=== PATIENT | male | born 1940 | race Caucasian/White ===

== ENCOUNTER 2022-01-18 06:32 | Inpatient (IN) ==
[2022-01-18] MEDS ORDERED: IOPAMIDOL 100 ML BOTTLE IV ONE (06:33)
[2022-01-18 06:51] LABS: POC Calcium, Ionized 1.12 (1.16-1.32); POC Potassium 3.7 (3.3-5.1)
--- NOTE | 2022-01-18 06:57 | Emergency Department Note ---
HPI General Chief complaint: Abdominal Pain Stated complaint: Lower abdominal pain starting 4 days ago. Time Seen by Provider: 01/18/22 06:37 Source: patient Mode of arrival: ambulatory Limitations: no limitations History of Present Illness HPI Narrative: Narrative: Patient is a 81-year-old male with a history significant for diverticulosis who presents to the emergency department due to abdominal pain and constipation. Patient states that he has had abdominal pain over the last 4 days, but it is not improving like he would expect. He states that it is in the right and left lower parts of his belly. He states that it feels like a pressure, and that he also has tenderness. He endorses pebble-like stool yesterday evening, but states that prior to that did have some loose stool. He denies any other symp toms at this time. Related Data Home Medications Medication Instructions Recorded Confirmed Vitamin E PO 06/01/17 05/21/18 glucosamine HCl 1,500 mg tablet 1,500 mg PO ONCE 06/01/17 05/21/18 mecobalamin (vitamin B12) 5,000 mcg PO 06/01/17 05/21/18 mcg disintegrating tablet multivitamin 1 tab PO QAM 06/01/17 05/21/18 Previous Rx's Medication Instructions Recorded atorvastatin 40 mg tablet 40 mg PO QDAY #90 tabs 10/20/17 tamsulosin 0.4 mg capsule (Flomax) 0.4 mg PO QDAY #90 caps 03/11/18 Allergies Allergy/AdvReac Type Severity Reaction Status Date / Time tramadol Allergy Not Verified 05/21/18 10:27 tolerated Review of Systems ROS ROS Narrative: Narrative: Constitutional: Denies fever or weakness Eyes: Denies eye pain or vision change ENT ED: Denies throat pain or rhinorrhea Cardiovascular: Denies chest pain or edema Respiratory: Denies shortness of breath or cough Gastrointestinal: Reports abdominal pain, diarrhea and constipation; Denies nausea, vomiting, hematochezia or melena Genitourinary: Denies dysuria or frequency Musculoskeletal: Denies back pain or myalgia Integumentary: Denies rash or lesions Neurological: Denies headache, weakness, numbness, confusion, abnormal gait or dizziness Endocrine: Denies fatigue or polyuria Hematological/Lymphatic: Denies easy bleeding or easy bruising PFS Narrative Patient History Narrative: Narrative: Medical/Surgical/Family History All Active Problems (Updated 04/04/20 @ 08:24 by Agent Panda) Lung nodule (Acute) Arthralgia of multiple joints (Acute) Muscle pain (Acute) Weight loss (Acute) Lesion of lip (Chronic) Disc disorder of cervical region (Acute) Diverticulosis (Chronic) Colon polyps (Chronic) History of colonoscopy (Chronic) Prostatic hypertrophy, benign (Chronic) Hyperlipidemia (Chronic) Emphysema of lung (Chronic) Carotid stenosis (Chronic) Medical History (Updated 04/04/20 @ 08:24 by Agent Panda) Carotid stenosis 01/27/2012; 2016 Right common and internal carotid arteries are widely patent. 50% stenosis of the right external carotid artery; 50% stenosis of the left common carotid artery - unchanged. Left internal carotid artery is widely patent. 50% stenosis of the left external carotid artery Colon polyps Disc disorder of cervical region Diverticulosis Elevated blood pressure Emphysema of lung Hyperlipidemia 01/27/2012 Lesion of lip right side of upper lip Lung nodule tri-pronged, abnormal appearing lung nodule in upper lung, unchanged from pre vious chest imaging 6 months prior Prostatic hypertrophy, benign w/o Urinary Obst. Surgical History H/O foot surgery (~03/2017) left foot, heel spur removal History of colonoscopy 02/04/2010; due 2020 Family History Unknown Alzheimer's disease Father Malignant neoplasm Metastatic cancer resulted in deathl. Recorded 12/20/09 Social History Smoking Status: Former smoker Alcohol Intake Frequency: does not drink Exam Narrative Narrative: Narrative: General Limitations: no limitations General appearance: Present alert and in no apparent distress; Absent anxious, appears intoxicated or sleepy Head Head: Present atraumatic and normocephalic Eye Eye: Present EOMI; Absent scleral icterus or nystagmus ENT ENT: Present mucous membranes moist; Absent nasal congestion Neck Neck: Present full ROM; Absent tenderness Chest Chest: Present normal inspection and symmetric chest wall rise; Absent tenderness Respiratory Respiratory: Present normal lung sounds bilaterally; Absent respiratory distress or accessory muscle use Cardiovascular Cardiovascular: Present regular rate, normal rhythm and normal heart sounds Adbominal Abdominal: Present soft, tenderness, guarding, normal bowel sounds and tenderness at McBurney's Point; Absent distention, rebound, rigidity or Rovsing's sign Extremities Extremities: Present normal inspection and full ROM Back Back: Present normal inspection and full ROM Neurological Neurological: Present alert and oriented X3 Psychiatric Psychiatric: Present normal affect and normal mood Skin Skin: Present warm (WNL), dry and normal color Course Vital Signs Vital signs: Vital Signs Temperature 98.4 F 01/18/22 06:33 Pulse Rate 71 01/18/22 06:33 Respiratory Rate 18 01/18/22 06:33 Blood Pressure 151/76 01/18/22 06:33 Pulse Oximetry (%) 95 01/18/22 06:33 Oxygen Delivery Method 01/18/22 06:33 Temperature 98.4 F 01/18/22 06:33 Pulse Rate 71 01/18/22 06:33 Respiratory Rate 18 01/18/22 06:33 Blood Pressure 151/76 01/18/22 06:33 Pulse Oximetry (%) 95 01/18/22 06:33 Oxygen Delivery Method 01/18/22 06:33 MDM MDM Narrative Medical decision making narrative: Narrative: Patient is a 81-year-old male who presents to the emergency department due to abdominal pain. Differential diagnoses include diverticulitis, colitis, constipation, UTI. Labs and imaging are pending at this time. Patient has been signed out to Dr. Coello. Lab Data Result diagrams: 01/18/22 06:56 Labs: Lab Results 01/18/22 Range/Units 06:46 POC Hct 45.0 (41-55) POC Sodium 140 (133-145) POC Potassium 3.7 (3.3-5.1) POC Chloride 106 (96-108) POC Total CO2 26.0 (22-30) POC BUN 25 H (6-20) POC Creatinine 1.0 (0.6-1.2) POC Glucose 100 (70-105) POC WB Ioniz Calcium 1.12 L (1.16-1.32) Discharge Plan Patient/Caregiver Discharge Instructions Pt seen by COST CONTROLLER/PA only: No Patient Disposition: Still a Patient Condition: Fair Follow up with: Maida Villanueva, ISAIAH, [employer] [Primary Care Provider] - Prescriptions: No Action atorvastatin 40 mg tablet 40 mg PO QDAY Qty: 90 4RF tamsulosin [Flomax] 0.4 mg capsule 0.4 mg PO QDAY Qty: 90 6RF mecobalamin (vitamin B12) 5,000 mcg tablet,disintegrating PO Vitamin E PO multivitamin tablet 1 tab PO QAM glucosamine HCl 1,500 mg tablet 1,500 mg PO ONCE
[2022-01-18 07:47] LABS: Basophils # (Auto) 0.04 K/mcL (0.00-0.30); Basophils % (Auto) 0.3 % (0.0-2.0); Eosinophils # (Auto) 0.19 K/mcL (0.00-0.70); Eosinophils % (Auto) 1.7 % (0.0-7.0); Hematocrit 45.6 % (40.1-51.0); Hemoglobin 15.2 g/dL (13.7-17.5); Lymphocytes % (Auto) 15.7 % (15.5-49.0); Mean Cell Volume 89.6 fL (80.0-100.0); Mean Corpuscular HGB Conc 33.3 g/dL (31.0-36.0); Mean Platelet Volume 10.6 fL (8.8-12.5); Monocytes # (Auto) 1.06 K/mcL (0.10-0.90); Monocytes % (Auto) 9.2 % (1.0-12.0); Neutrophils % (Auto) 72.8 % (38.0-78.0); Platelet Count 198 K/mcL (140-440); RBC 5.09 M/mcL (4.63-6.08); Red Cell Distribution Width 13.1 % (11.5-14.5); WBC 11.5 K/mcL (4.5-11.0)
[2022-01-18] MEDS ORDERED: PIPERACILLIN SODIUM/TAZOBACTAM 3.375 GM in DEXTROSE 5% IN WATER 50 ML IV ONE (07:55)
[2022-01-18 08:01] LABS: ALT/SGPT 19 U/L (<40); AST/SGOT 19 U/L (<40); Albumin 3.9 gm/dL (3.2-5.2); Alkaline Phosphatase 71 U/L (39-117); Bilirubin,Direct 0.3 mg/dL (<0.3); Bilirubin,Total 1.5 mg/dL (0.1-1.0); Globulin 2.7 gm/dL (2.2-3.7)
--- NOTE | 2022-01-18 08:08 | Cat Scan Report ---
INDICATION: Abdominal pain/tenderness, RLQ, LLQ COMPARISON: Previous CT scan dated 10/18/2015 TECHNIQUE: Axial images were obtained through the abdomen and pelvis. Sagittally and coronally reformatted images. 80 mL Isovue 370 injected intravenously. Oral contrast material was not administered FINDINGS: Lung bases:Negative. No pulmonary parenchymal nodule. No pleural fluid or pericardial fluid Liver:Negative. No focal intrahepatic mass. No focal abnormality. Liver contour is smooth. No evidence for cirrhosis Gallbladder, bilary:No calcified gallstones. No gallbladder wall thickening. No dilated intra or extrahepatic bile ducts. Spleen:No splenomegaly. Normal enhancement of splenic and portal veins. Pancreas:No pancreatic mass. No peripancreatic abnormality Adrenal glands:Negative Kidneys,ureters,bladder:No solid renal mass. No hydronephrosis. There is a 3 mm nonobstructing left lower pole renal calculus. There is a 7 cm right renal cyst. No hydroureter. No ureteral calculus. Urinary bladder is elevated and compressed by a markedly enlarged prostate. Bladder wall thickening is possible although the bladder is not distended Gastrointestinal:There is sigmoid colon diverticulosis. There is pericolonic inflammatory change surrounding the mid and distal sigmoid colon consistent with diverticulitis. There is free intraperitoneal air and localized pericolonic extraluminal gas. Appearance is consistent with diverticulitis and perforated diverticulum. A well-defined discrete abscess is not identified. The site of perforation appears to be in the mid sigmoid colon in the right lower abdomen. Negative small bowel. No mechanical small bowel obstruction. No bowel wall thickening. No focal abnormality. Negative stomach and duodenum. No focal abnormality. Appendix: The appendix is not well visualized. No evidence for appendicitis Vascular:No abdominal aortic aneurysm. Superior mesenteric artery is normal. Common hepatic artery arises from the superior mesenteric artery. The celiac trunk is very small and irregular. This may be secondary to atherosclerotic disease or vasculitis. This is unchanged Lymphatic:No retroperitoneal or mesenteric adenopathy Mesentery, peritoneum: There is pneumoperitoneum as above. This is secondary to severe sigmoid diverticulosis and perforation Reproductive:Markedly enlarged prostate with bladder elevation. Bladder is not distended. Marked prostate enlargement is worse since 10/18/2015 Musculoskeletal:Degenerative disc disease at L4-5. No lumbar compression fractures. No pelvic or hip fracture No abdominal wall or inguinal hernia IMPRESSION: 1. Severe diverticulosis and sigmoid diverticulitis. There is perforation with pneumoperitoneum. No focal defined abscess. 2. Markedly enlarged prostate, increased since 10/18/2015 3. Small caliber irregular celiac trunk 4. Nonobstructing left renal calculus. Large right renal cyst 5. Emergency room was called with these results, 01/18/2022, 0745 The exam was performed using radiation dose optimization techniques including, but not limited to, automated exposure control, adjustment of the mA and/or kV according to patient size and use of iterative reconstruction technique. Interpreted and Authenticated by: Jack Fierro 01/18/22
[2022-01-18] MEDS ORDERED: HYDROmorphone 0.5 MG/0.5 ML SYRINGE IV PRN (08:10)
[2022-01-18] MEDS ORDERED: ONDANSETRON 4 MG/2 ML VIAL IV PRN (08:10)
[2022-01-18 08:41] LABS: Appearance,Urine CLEAR (Clear); Bilirubin,Urine NEGATIVE (Negative); Color,Urine YELLOW; Culture Indicated,Urine yes; Glucose,Urine (UA) NEGATIVE (Negative); Ketones,Urine NEGATIVE (Negative); Leukocyte Esterase,Urine TRACE /uL (Negative); Mucus,Urine MANY /hpf; Nitrate,Urine NEGATIVE (Negative); Protein,Urine NEGATIVE (Negative); Specific Gravity,Urine 1.025 (1.000-1.035); Urine Blood NEGATIVE ery/mcL (Negative); Urine Budding Yeast FEW /hpf; Urine RBC 6 /hpf (0-3); Urine Squamous Epithelial Cell < 1 /hpf (0-4); Urine Transitional Epi Cells < 1 /hpf (0-2); Urine WBC 36 /hpf (0-4); Urobilinogen,Urine Normal
[2022-01-18] MEDS ORDERED: metroNIDAZOLE 500 MG/100 ML BAG IV SCH (09:00)
--- NOTE | 2022-01-18 09:32 | General Surg History&Physical ---
HPI History of Present Illness Patient information: Note initiated : 01/18/22 at 9:27 am Service Date, if different from initiated Date: [] Patient: Guille English a 81 y/o M admitted on 01/18/22 for Lower abdominal pain starting 4 days ago.. Chief Complaint: [] Chief complaint: abdominal pain History of present illness: Mr. English is a 81 year old M who presents with 3-day history of lower quadrant abdominal pain. He denies any prior similar sort of pain. Pain gradually got worse over the last couple days and his noticed a foul smell and told him to come to the emergency room. He denies any fevers chills nausea vomiting at this time. He has no prior history of abdominal pain. Work-up in the emergency room is consistent with perforated appendicitis. Review of Systems Review of systems: All systems are reviewed, negative other than above PFSH PFSH All Active Problems Diverticulitis large intestine (Acute) Lung nodule (Acute) Arthralgia of multiple joints (Acute) Muscle pain (Acute) Weight loss (Acute) Lesion of lip (Chronic) Disc disorder of cervical region (Acute) Diverticulosis (Chronic) Colon polyps (Chronic) History of colonoscopy (Chronic) Prostatic hypertrophy, benign (Chronic) Hyperlipidemia (Chronic) Emphysema of lung (Chronic) Carotid stenosis (Chronic) Medical History Carotid stenosis 01/27/2012; 2016 Right common and internal carotid arteries are widely patent. 50% stenosis of the right external carotid artery; 50% stenosis of the left common carotid artery - unchanged. Left internal carotid artery is widely patent. 50% stenosis of the left external carotid artery Colon polyps Disc disorder of cervical region Diverticulosis Elevated blood pressure Emphysema of lung Hyperlipidemia 01/27/2012 Lesion of lip right side of upper lip Lung nodule tri-pronged, abnormal appearing lung nodule in upper lung, unchanged from previous chest imaging 6 months prior Prostatic hypertrophy, benign w/o Urinary Obst. Surgical History H/O foot surgery (~03/2017) left foot, heel spur removal History of colonoscopy 02/04/2010; due 2020 Family History Unknown Alzheimer's disease Father Malignant neoplasm Metastatic cancer resulted in deathl. Recorded 12/20/09 Social History household members: spouse housing: house marital status: occupational status: retired well-balanced diet: daily or most days during the past year weight has: remained stable physical activity: walking smoking status: Former smoker alcohol intake frequency: does not drink working smoke detector in home: Yes MEDS/ALLERGIES Home Medications and Allergies Home Medications Medication Instructions Recorded Confirmed Type Vitamin E 1 tab PO QDAY 06/01/17 01/18/22 History glucosamine HCl 1,500 mg tablet 1,500 mg PO ONCE 06/01/17 01/18/22 History mecobalamin (vitamin B12) 5,000 5,000 mcg PO QDAY 06/01/17 01/18/22 History mcg disintegrating tablet multivitamin 1 tab PO QAM 06/01/17 01/18/22 History atorvastatin 40 mg tablet 40 mg PO QDAY #90 tabs 10/20/17 01/18/22 Rx tamsulosin 0.4 mg capsule (Flomax) 0.4 mg PO QDAY #90 caps 03/11/18 01/18/22 Rx omega 1-fno-eil-fish oil 1,000 mg 1 cap PO QDAY 01/18/22 01/18/22 History (120 mg-180 mg) capsule (Fish Oil) Allergies Allergy/AdvReac Type Severity Reaction Status Date / Time tramadol Allergy Not Verified 01/18/22 08:39 tolerated Physical Examination Vital Signs Vital signs: Temp Pulse Resp BP Pulse Ox O2 Del Method 98.2 F 62 14 124/71 96 01/18/22 09:00 01/18/22 09:00 01/18/22 09:00 01/18/22 09:00 01/18/22 09:00 01/18/22 09:00 General physical appearance General physical exam: well developed, well nourished and no distress Eyes Eye exam: PERRL and normal ocular movement ENT ENT exam: normal pinna, normal nares, normal mucosa, no hearing loss and no congestion Head Head exam IM: Present atraumatic and normocephalic Neck Neck exam: no masses, no bruits, trachea midline, no lymphadenopathy and no venous distension Cardiovascular Cardiovascular exam IM: Present normal rate and rhythm Respiratory Respiratory exam: normal expansion, normal respiratory effort, clear to percussion and clear to auscultation Abdomen Abdomen: Present soft, tender (Bilateral lower quadrant) and bowel sounds; Absent guarding, rigid, rebound or distended Hernia: Present none Genitourinary Genitourinary (Male): Present normal penis with no external lesions Rectum Rectum: Present normal sphincter tone, no hemorrhoids, no tenderness, no masses and no bleeding Integumentary Integumentary: Present no rash, no growths and no abnormal pigmentation Neurologic Neurologic: Present normal coordination and normal sensation Musculoskeletal Musculoskeletal: Present normal gait and normal posture Psychiatric Psychiatric: Present oriented to time, oriented to person, oriented to place, speech is normal and memory intact Results Labs Result diagrams: 01/18/22 06:56 Labs: Abnormal lab results 01/18/22 01/18/22 01/18/22 Range/Units 06:46 06:55 06:56 WBC 11.5 H (4.5-11.0) K/mcL Wise # (Auto) 1.06 H (0.10-0.90) K/mcL Absolute Neutrophils 8.38 H (1.80-8.00) K/mcL POC BUN 25 H (6-20) POC WB Ioniz Calcium 1.12 L (1.16-1.32) Total Bilirubin 1.5 H (0.1-1.0) mg/dL Direct Bilirubin 0.3 H (<0.3) mg/dL Ur Leukocyte Esterase (Negative) /uL Urine RBC (0-3) /hpf Urine WBC (0-4) /hpf Urine Mucus (None) /hpf Urine Yeast (Budding) (None) /hpf 01/18/22 Range/Units 07:57 WBC (4.5-11.0) K/mcL Wise # (Auto) (0.10-0.90) K/mcL Absolute Neutrophils (1.80-8.00) K/mcL POC BUN (6-20) POC WB Ioniz Calcium (1.16-1.32) Total Bilirubin (0.1-1.0) mg/dL Direct Bilirubin (<0.3) mg/dL Ur Leukocyte Esterase Trace A (Negative) /uL Urine RBC 6 H (0-3) /hpf Urine WBC 36 H (0-4) /hpf Urine Mucus Many A (None) /hpf Urine Yeast (Budding) Few A (None) /hpf Diabetes panel 01/18/22 Range/Units 06:55 AST 19 (<40) U/L ALT 19 (<40) U/L Alkaline Phosphatase 71 (39-117) U/L Total Protein 6.6 (5.9-8.4) gm/dL Albumin 3.9 (3.2-5.2) gm/dL Calcium panel 01/18/22 Range/Units 06:55 Albumin 3.9 (3.2-5.2) gm/dL Adrenal panel 01/18/22 Range/Units 06:55 Total Bilirubin 1.5 H (0.1-1.0) mg/dL AST 19 (<40) U/L ALT 19 (<40) U/L Alkaline Phosphatase 71 (39-117) U/L Total Protein 6.6 (5.9-8.4) gm/dL Albumin 3.9 (3.2-5.2) gm/dL All other labs normal. Imaging CT scan - abdomen: image reviewed A/P Assessment and plan (1) Diverticulosis: Status: Chronic (2) Diverticulitis large intestine: Status: Acute Plan This is a pleasant 81-year-old gentleman who presents with perforated sigmoid diverticulitis. Perforation appears to be mainly contained in the mesentery, there is some small bubbles throughout. Patient is nontoxic, no peritonitis. Plan: Admit, n.p.o., IV antibiotics. Will continue to follow. Time Spent With Patient Time: Total time spent is greater than 50% in coordination of care (as documented) at patient's floor/unit and/or counseling patient:
[2022-01-18] MEDS: LACTATED RINGERS 1,000 ML IV SCH ×3 (10:26→21:53)
[2022-01-18] MEDS: metroNIDAZOLE 500 MG/100 ML BAG IV SCH ×3 (11:49→23:37)
[2022-01-18] MEDS: LEVOFLOXACIN 750 MG/150 ML BAG IV SCH (12:50)
[2022-01-19] MEDS: LACTATED RINGERS 1,000 ML IV SCH ×3 (02:52→16:56)
[2022-01-19] MEDS: metroNIDAZOLE 500 MG/100 ML BAG IV SCH ×3 (05:47→17:41)
[2022-01-19 06:52] LABS: Basophils # (Auto) 0.05 K/mcL (0.00-0.30); Basophils % (Auto) 0.6 % (0.0-2.0); Eosinophils # (Auto) 0.27 K/mcL (0.00-0.70); Eosinophils % (Auto) 3.1 % (0.0-7.0); Hematocrit 44.7 % (40.1-51.0); Hemoglobin 15.3 g/dL (13.7-17.5); Lymphocytes # (Auto) 1.49 K/mcL (1.50-4.80); Lymphocytes % (Auto) 17.1 % (15.5-49.0); Mean Cell Volume 90.1 fL (80.0-100.0); Mean Corpuscular HGB Conc 34.2 g/dL (31.0-36.0); Mean Platelet Volume 10.5 fL (8.8-12.5); Monocytes # (Auto) 0.75 K/mcL (0.10-0.90); Monocytes % (Auto) 8.6 % (1.0-12.0); Neutrophils % (Auto) 70.1 % (38.0-78.0); Platelet Count 192 K/mcL (140-440); RBC 4.96 M/mcL (4.63-6.08); Red Cell Distribution Width 12.8 % (11.5-14.5); WBC 8.7 K/mcL (4.5-11.0)
[2022-01-19 07:30] LABS: Blood Urea Nitrogen 18 mg/dL (8-23); Calcium 9.1 mg/dL (8.6-10.4); Carbon Dioxide 27 mmol/L (22-30); Chloride 103 mmol/L (96-108); Glomerular Filtration Rate 81; Glucose 83 mg/dL (70-105)
[2022-01-19] MEDS: LEVOFLOXACIN 750 MG/150 ML BAG IV SCH (10:04)
--- NOTE | 2022-01-19 20:15 | General Surgery Progress Note ---
SUBJECTIVE Subjective Patient information: Note initiated : 01/19/22 at 8:12 pm Service Date, if different from initiated Date: [] Patient: Guille English 81 y/o M admitted on 01/18/22 for Lower abdominal pain starting 4 days ago.. Chief Complaint: [] Interval history: less pain overnight no n/v/f/c Constitutional Vitals: Vital Signs Temp Pulse Resp BP Pulse Ox O2 Del Method 98.1 F 65 20 141/69 96 01/19/22 19:05 01/19/22 19:05 01/19/22 19:05 01/19/22 19:05 01/19/22 19:05 01/19/22 19:05 Period Temp Pulse Resp BP Sys/Fox Pulse Ox O2 Del Method O2 Flow Rate Last 24 Hr 97.9 F-98.2 F 59-73 14-20 128-147/68-76 94-100 Room Air-Room Air Intake and Output 01/19/22 01/19/22 01/20/22 11:59 19:59 03:59 Intake Total 1250 1926 Output Total 525 925 Balance 725 1001 Weight 217 lb 4.8 oz Patient Weight 01/20/22 03:59 Weight 217 lb 4.8 oz Intake & Output: Intake & Output 01/19/22 01/19/22 01/20/22 11:59 19:59 03:59 Intake Total 1250 1926 Output Total 525 925 Balance 725 1001 Weight 217 lb 4.8 oz Intake: IV 1250 1206 Lactated Ringers 1,000 ml @ 125 1000 1106 mls/hr IV .Q8H [facility] Rx#: [id number] Oral 720 Output: Void Amount 525 925 Other: Meal Lunch Percent of Meal Consumed 100% Urine Appearance Clear Clear Urine Color Dark Danae Yellow General appearance: cooperative and no acute distress GI/Abdominal GI/Abdominal exam: Present soft; Absent distended or tenderness A/P Assessment and plan (1) Diverticulitis large intestine: Status: Acute Plan perforated diverticulitis cont abx advance diet Time Spent With Patient Time: Total time spent is greater than 50% in coordination of care (as documented) at patient's floor/unit and/or counseling patient:
[2022-01-19] MEDS: metroNIDAZOLE 500 MG TABLET PO SCH (20:39)
[2022-01-19] MEDS: CIPROFLOXACIN 500 MG TABLET PO SCH (20:42)
[2022-01-20] MEDS: LACTATED RINGERS 1,000 ML IV SCH ×2 (02:22→09:19)
[2022-01-20] MEDS: metroNIDAZOLE 500 MG TABLET PO SCH (06:19)
--- NOTE | 2022-01-20 07:58 | Discharge Summary ---
Discharge Provider Provider IMPORTANT FOLLOW-UP INFORMATION FOR PCP: Patient information: Note initiated : 01/20/22 at 7:57 am Service Date, if different from initiated Date: [] Patient: Guille English 81 y/o M admitted on 01/18/22 for Lower abdominal pain starting 4 days ago.. Chief Complaint: [] Date of admission: 01/18/22 08:48 Discharge date: 01/20/22 Primary care physician: Maida Villanueva Consults: 01/19/22 06:54 Consult to Physician [CONS] Routine Comment: Consulting Provider: Nguyễn Goldberg Reason For Exam: Physician to Consult COURSE Hospital Course Hospital course: Patient admitted with perforated sigmoid diverticulitis, perforation contained to the mesentery. Patient was placed on IV antibiotics, progressed without difficulty. This morning he is now pain-free, tolerating regular diet and tolerating p.o. antibiotics. Discharge diagnosis: Sigmoid diverticulitis with perforation Time Spent with Patient Time attestation: Total time spent providing and/or coordinating discharge services: Time spent: Less than 30 minutes Physical Examination Vital Signs Vital signs: Temp Pulse Resp BP Pulse Ox O2 Del Method 98.1 F 58 L 20 147/76 98 01/20/22 07:02 01/20/22 07:02 01/20/22 07:02 01/20/22 07:02 01/20/22 07:02 01/20/22 07:02 Discharge Plan Patient/Caregiver Discharge Instructions Activity: increase activity as tolerated Diet: Regular Diet Activity Restrictions/Additional Instructions: Finish all antibiotics. Follow-up with me in 2 weeks. Prescriptions: New metronidazole 500 mg Tablet 500 mg PO Q8 8 Days Qty: 24 0RF ciprofloxacin HCl 500 mg Tablet 500 mg PO BID 8 Days Qty: 16 0RF Continued atorvastatin 40 mg tablet 40 mg PO QDAY Qty: 90 4RF tamsulosin [Flomax] 0.4 mg capsule 0.4 mg PO QDAY Qty: 90 6RF mecobalamin (vitamin B12) 5,000 mcg tablet,disintegrating 5,000 mcg PO QDAY Vitamin E 1 tab PO QDAY multivitamin tablet 1 tab PO QAM glucosamine HCl 1,500 mg tablet 1,500 mg PO ONCE omega 2-pfz-ium-fish oil [Fish Oil] 1,000 mg (120 mg-180 mg) Capsule 1 cap PO QDAY Follow Up Plan Follow up with: Maida Villanueva, ISAIAH, FUR SEWER [Primary Care Provider] - Nguyễn Goldberg MD [Physician] - Patient Disposition: Home, Self-Care Prognosis: Fair Discharge Orders: Discharge Order (Routine); Ordered 01/20/22 Ordered By: Nguyễn Goldberg Pending Pending Pending: Resuscitation Status Resuscitate (Full Code) Diet Regular Diet Start Sun Jan 19 2009 Ciprofloxacin (Ciprofloxacin 500 Mg Tablet) 500 mg PO BID DILIA; Protocol Last Admin: 01/19/22 20:42 Dose: 500 mg Documented By: [email or web address] Lactated Ringer's (Lactated Ringers) 1,000 mls @ 125 mls/hr IV .Q8H DILIA Last Admin: 01/20/22 02:22 Dose: 125 mls/hr Documented By: Infusion: 01/20/22 02:22 Dose: 0 mls/hr Documented By: Infusion: 01/19/22 19:54 Dose: 125 mls/hr Documented By: [email or web address] Infusion: 01/19/22 17:47 Dose: 0 mls/hr Documented By: [email or web address] Co-signed By: [email or web address] Admin: 01/19/22 16:56 Dose: 125 mls/hr Documented By: [email or web address] Co-signed By: [email or web address] Infusion: 01/19/22 16:53 Dose: 125 mls/hr Documented By: [email or web address] Co-signed By: [email or web address] Infusion: 01/19/22 13:01 Dose: 125 mls/hr Documented By: [email or web address] Co-signed By: [email or web address] Infusion: 01/19/22 12:01 Dose: 0 mls/hr Documented By: [email or web address] Co-signed By: [email or web address] Admin: 01/19/22 07:53 Dose: 125 mls/hr Documented By: [email or web address] Co-signed By: [email or web address] Infusion: 01/19/22 05:53 Dose: 0 mls/hr Documented By: [email or web address] Co-signed By: [email or web address] Admin: 01/19/22 02:52 Dose: Not Given Documented By: Admin: 01/18/22 21:53 Dose: 125 mls/hr Documented By: Infusion: 01/18/22 18:26 Dose: 125 mls/hr Documented By: Admin: 01/18/22 17:18 Dose: Not Given Documented By: Admin: 01/18/22 10:26 Dose: 125 mls/hr Documented By: [email or web address] Metronidazole (Metronidazole 500 Mg Tablet) 500 mg PO Q8 DILIA; Protocol Last Admin: 01/20/22 06:19 Dose: 500 mg Documented By: [email or web address] Admin: 01/19/22 20:39 Dose: Not Given Documented By: [email or web address] Shift Summary 01/19/22 22:33 Shift Summary by Jorden Yanez medical admit 01/18 for Perforated sigmoid Diverticulosis A&OX4, VSS, RA, 20g LAC, up ad chloe, amb. halls, voids in urinal in BR, reports output to staff, passing flatus, diet upgraded from clear to regular to start in AM, very pleasant and cooperative with cares meds- LR @125mls/hr, IV ABO changed to PO 01/19 HS- Cipro and Flagyl, no prns for pain needed 01/18 CAT scan IMPRESSION: 1. Severe diverticulosis and sigmoid diverticulitis. There is perforation with pneumoperitoneum. No focal defined abscess. 2. Markedly enlarged prostate, increased since 10/18/2015 3. Small caliber irregular celiac trunk 4. Nonobstructing left renal calculus. Large right renal cyst History of present illness: Mr. English is a 81 year old M who presents with 3-day history of lower quadrant abdominal pain. He denies any prior similar sort of pain. Pain gradually got worse over the last couple days and his noticed a foul smell and told him to come to the emergency room. He denies any fevers chills nausea vomiting at this time. He has no prior history of abdominal pain. Work-up in the emergency room is consistent with perforated appendicitis. will D/C home with when able Initialized on 01/19/22 22:33 - END OF NOTE
[2022-01-20] MEDS: CIPROFLOXACIN 500 MG TABLET PO SCH (09:21)
== END 2022-01-20 11:23 | disposition home or self-care (01) | DRG 392 ==
LOC: ED 06:32 → MEDSUR 08:48
PROVIDERS: ADMIT Surgery; ATTEND Surgery